=== PATIENT | female | born 1960 | race Two or more races ===

== ENCOUNTER 2024-07-04 04:31 | Inpatient (IN) | payer MEDICARE, MEDICAID ==
[~2024-07-04] VITALS: Ht 172.7 cm; Wt 104.2 kg
[2024-07-04 05:13] LABS: BASOPHILS % (AUTO) 0.5 % (0-1); EOSINOPHILS # (AUTO) 0.1 X10'3 (0-0.9); LYMPHOCYTES # (AUTO) 0.3 X10'3 (1.1-4.8); LYMPHOCYTES % (AUTO) 3.4 % (21-51); MEAN CORPUSCULAR HEMOGLOBIN 26.9 PG (27.0-31.0); MEAN CORPUSCULAR HGB CONC 32.7 g/dL (33.0-36.5); MEAN CORPUSCULAR VOLUME 82.2 FL (78-98); MEAN PLATELET VOLUME 8.8 FL (7.4-10.4); MONOCYTES # (AUTO) 0.4 X10'3 (0-0.9); MONOCYTES % (AUTO) 4.3 % (2-12); NEUTROPHILS # (AUTO) 7.9 X10'3 (1.8-7.7); NEUTROPHILS % (AUTO) 90.8 % (42-75); PLATELET COUNT 86 X10'3 (140-440); RED BLOOD COUNT 2.49 X10'6 (4.20-5.60); RED CELL DISTRIBUTION WIDTH 15.7 % (11.5-14.5); WHITE BLOOD COUNT 8.6 X10'3 (4.5-11.0)
[2024-07-04 05:16] LABS: HEMATOCRIT 20.5 % (35.0-45.0); HEMOGLOBIN 6.7 g/dl (12.0-16.0)
[2024-07-04] MEDS ORDERED: SACU1TAB7 PO (05:22)
[2024-07-04] MEDS ORDERED: APRE1TAB3 PO (05:22)
[2024-07-04] MEDS ORDERED: ASPI-1397 PO (05:22)
[2024-07-04] MEDS ORDERED: METO-384 PO (05:22)
[2024-07-04] MEDS ORDERED: LACT-373 PO (05:22)
[2024-07-04] MEDS ORDERED: EMPA10TA PO (05:22)
[2024-07-04] MEDS ORDERED: RIFA550T PO (05:22)
[2024-07-04] MEDS ORDERED: BETA15CR4 TOP (05:22)
[2024-07-04] MEDS ORDERED: INSU200I4 SQ (05:22)
[2024-07-04] MEDS ORDERED: CLOP75TA34 PO (05:22)
[2024-07-04] MEDS ORDERED: SPIR50TA5 (05:25)
[2024-07-04 05:27] LABS: APTT 26 SECONDS (22-32); INR 1.3 INR
[2024-07-04 05:32] LABS: ALBUMIN 1.4 G/DL (3.4-5.0); ANION GAP 11 (8-16); BLOOD UREA NITROGEN 32 MG/DL (7-18); CALCIUM 7.4 MG/DL (8.5-10.1); CHLORIDE 101 MMOL/L (99-107); CREATININE 2.13 MG/DL (0.40-0.90); POTASSIUM 3.6 MMOL/L (3.5-5.1); SODIUM 131 MMOL/L (135-145); TOTAL CARBON DIOXIDE 19.4 MMOL/L (24-32); eCRCL 28 ML/MIN; eGFR 23 ML/MIN
[2024-07-04] MEDS: normal saline 1000ml 1,000 ML IV ONE ×2 (05:39→10:03)
[2024-07-04] MEDS ORDERED: calcium gluconate inj. 2 GM in normal saline 100ml IV soln 100 ML IV ONE (05:40)
[2024-07-04 05:43] LABS: GLUCOSE 436 MG/DL (70-104)
[2024-07-04] MEDS: CALCIUM GLUC 1gm/50ml NACL,iso 50 ML IV ONE ×2 (05:57→06:42)
[2024-07-04] MEDS: insulin regular, human 10 units/0.1 ml syringe IV ONE (06:06)
[2024-07-04] MEDS: potassium Cl 40MEQ/1/2NS 520ml 520 ML IV SCH (06:38)
[2024-07-04 06:54] VITALS: BP 101/50; PULSE 90; RESP 14; TEMP 98.1
[2024-07-04 07:18] VITALS: BP 100/46; PULSE 92; RESP 16; TEMP 98.3
[2024-07-04] MEDS: acetaminophen 1,000mg/100ml IV 100 ML IV SCH (07:23)
[2024-07-04] MEDS: LORazepam 2 mg/ml vial IV ONE (07:44)
[2024-07-04 08:18] VITALS: BP 102/50; PULSE 90; RESP 16; TEMP 97.7
[2024-07-04] MEDS ORDERED: ondansetron/PF 4mg/2ml inj IV PRN ×2 (08:45→08:50)
[2024-07-04] MEDS ORDERED: magnesium sulf-water 4G/100mL 100 ML IV PRN ×2 (08:45→08:50)
[2024-07-04] MEDS ORDERED: potassium Cl 40MEQ/1/2NS 520ml 520 ML IV PRN ×2 (08:45→08:50)
[2024-07-04] MEDS ORDERED: magnesium sulf-water 2g/50mL 50 ML IV PRN ×2 (08:45→08:50)
[2024-07-04] MEDS ORDERED: mag hydrox/Alum hydrox/simeth 30ml oral suspension PO PRN ×2 (08:45→08:50)
[2024-07-04 08:50] VITALS: BP 108/61; PULSE 90; RESP 14; TEMP 98
[2024-07-04] MEDS ORDERED: magnesium hydroxide 30ml (MOM) UD suspension PO PRN (08:50)
[2024-07-04] MEDS ORDERED: magnesium Cl slow-release 64mg tablet PO PRN (08:50)
[2024-07-04] MEDS ORDERED: acetaminophen 325mg tablet PO PRN ×2 (08:50)
[2024-07-04] MEDS ORDERED: potassium Cl 20 mEq SR tablet PO PRN ×2 (08:50)
[2024-07-04] MEDS ORDERED: DEXTROSE 15 GM of carb/4 tabs (each vial/BOTTLE has 4 tablets) PO PRN ×2 (08:55)
[2024-07-04] MEDS ORDERED: dextrose 50%-water 50ml dispensing syringe IV PRN ×2 (08:55)
[2024-07-04] MEDS ORDERED: glucagon, human recombinant 1mg kit SUBCUT PRN (08:55)
[2024-07-04] MEDS: heparin, porcine 5000 units/ml vial SQ SCH (09:10)
[2024-07-04] MEDS: PERFLUTREN PROTEIN-A MICROSPHR (Optison) 0.22 MG/ML 3ML VIAL IV ONE (09:19)
[2024-07-04 09:20] LABS: MAGNESIUM 2.2 MG/DL (1.5-2.4)
[2024-07-04 09:27] LABS: BILIRUBIN,URINE NEGATIVE (Neg); CLARITY,URINE CLOUDY (Clear); COLOR,URINE YELLOW (Yellow); GLUCOSE, URINE >=1000 mg/dl (Neg); KETONES,URINE NEGATIVE (Neg); LEUKOCYTE ESTERASE ,URINE NEGATIVE (Neg); NITRITES, URINE NEGATIVE (Neg); OCCULT BLOOD,URINE NEGATIVE (Neg); PH,URINE 5.5 (4.8-8.0); PROTEIN,URINE NEGATIVE (Neg); UROBILINOGEN,URINE 0.2 E.U/dL (0.2-1.0)
[2024-07-04 09:30] LABS: UA COLLECTION TYPE FOLEY CATH
[2024-07-04 09:32] LABS: SQUAMOUS EPITHELIAL CELL,UR FEW /LPF (FEW)
[2024-07-04 09:33] LABS: BACTERIA,URINE 1+ /HPF (Neg); RBC,URINE 0-2 /HPF (0-2); WBC,URINE TNTC /HPF (0-4)
[2024-07-04 10:02] LABS: APTT 27 SECONDS (22-32); INR 1.2 INR; PROTHROMBIN TIME 12.7 SECONDS (9.0-12.0)
[2024-07-04] MEDS: normal saline 1000ml 1,000 ML IV SCH (10:04)
[2024-07-04] MEDS: morphine 2 MG/ML inj. syringe IV PRN (10:09)
[2024-07-04 10:12] LABS: HEMOGLOBIN A1C 8.7 % (4.5-6.2)
[2024-07-04] MEDS: CefTRIAXone/D5W-Rocephin 1gm 50 ML IV SCH (10:17)
[2024-07-04 10:39] LABS: ABG BASE EXCESS -7.1 mmol/L (-2.0-3.0); ABG HCO3 16.1 mmol/L (21.0-28.0); ABG OXYGEN SATURATION 91.6 % (94.0-98.0); ABG PCO2 (T) 24.3 mmHg (32.0-45.0); ABG PH (T) 7.437 (7.350-7.450); ABG PO2 (T) 53.8 mmHg (83.0-108.0); ALLEN'S TEST POSITIVE; FCOHb 1.7 % (0.5-1.5); FHHb 8.2 % (0.0-5.0); FLOW 0 L/min; FMetHb 0.3 % (0.0-1.5); FO2Hb 89.8 % (94.0-98.0); MODE ROOM AIR; PATIENT TEMPERATURE 36.7; TOTAL HEMOGLOBIN 8.6 G/dl (12.0-16.0)
[2024-07-04 11:17] LABS: HEMATOCRIT 24.6 % (35.0-45.0); HEMOGLOBIN 8.2 g/dl (12.0-16.0); MEAN CORPUSCULAR HEMOGLOBIN 27.5 PG (27.0-31.0); MEAN CORPUSCULAR HGB CONC 33.3 g/dL (33.0-36.5); MEAN CORPUSCULAR VOLUME 82.4 FL (78-98); MEAN PLATELET VOLUME 8.7 FL (7.4-10.4); PLATELET COUNT 90 X10'3 (140-440); RED BLOOD COUNT 2.99 X10'6 (4.20-5.60); RED CELL DISTRIBUTION WIDTH 15.8 % (11.5-14.5); WHITE BLOOD COUNT 8.8 X10'3 (4.5-11.0)
[2024-07-04 11:38] LABS: D-DIMER 2.06 MG/L FEU (0-0.50)
[2024-07-04] MEDS ORDERED: normal saline 1000ML IV soln IVB ONE (11:40)
[2024-07-04] MEDS: INSULIN LISPRO 100 UNIT/ML INSULN.PEN MULTI-DOSE SQ SCH (12:50)
[2024-07-04 19:25] VITALS: BP 105/43; PULSE 91; RESP 11; TEMP 97.2; O2SAT 94
[2024-07-04 19:26] LABS: HEMATOCRIT 25.6 % (35.0-45.0); HEMOGLOBIN 8.5 g/dl (12.0-16.0); MEAN CORPUSCULAR HEMOGLOBIN 27.4 PG (27.0-31.0); MEAN CORPUSCULAR HGB CONC 33.4 g/dL (33.0-36.5); MEAN CORPUSCULAR VOLUME 82.1 FL (78-98); MEAN PLATELET VOLUME 9.1 FL (7.4-10.4); PLATELET COUNT 87 X10'3 (140-440); RED BLOOD COUNT 3.11 X10'6 (4.20-5.60); RED CELL DISTRIBUTION WIDTH 15.7 % (11.5-14.5); WHITE BLOOD COUNT 8.1 X10'3 (4.5-11.0)
[2024-07-04] MEDS: K and/or MAG REPLACEMENT MC SCH (20:00)
[2024-07-04 20:01] LABS: CHOL/HDL RATIO 3.8 (0.00-4.99); CHOLESTEROL 137 MG/DL (0-200); CREATININE 2.04 MG/DL (0.40-0.90); HDL CHOLESTEROL 36 MG/DL (35-60); LDL CHOLESTEROL 71 MG/DL (50-100); PRO BRAIN NATRIURETIC PEPTIDE 1006 PG/ML (0-125); SODIUM 131 MMOL/L (135-145); TRIGLYCERIDES 89 MG/DL (20-135); eCRCL 29 ML/MIN; eGFR 25 ML/MIN
[2024-07-04 20:48] LABS: OSMOLALITY 536.5 MOSM/K (280-300)
[2024-07-04] MEDS: rifaximin 550mg tablet PO SCH (21:36)
[2024-07-04] MEDS: docusate sod 100mg capsule PO SCH (21:37)
[2024-07-04] MEDS: aspirin 81mg, enteric-coated 1 TAB TABLET.DR PO SCH (21:37)
[2024-07-04] MEDS: clopidogrel 75mg tablet PO SCH (21:37)
[2024-07-04] MEDS: EMPAGLIFLOZIN 10 MG TABLET PO SCH (21:39)
[2024-07-04] MEDS: sacubitril/valsartan 49mg-51mg tablet PO SCH (21:40)
[2024-07-04 22:00] VITALS: BP 99/36; PULSE 93; RESP 12; TEMP 97.7; O2SAT 98
[2024-07-04] MEDS: insulin glargine (Lantus) pen - multi-dose SQ SCH (22:56)
[2024-07-05] VITALS (8 sets, daily range): BP systolic 102–140; BP diastolic 48–59; PULSE 90–100; RESP 12–16; TEMP 96.7–98.6; O2SAT 94–100
[2024-07-05 06:48] LABS: BASOPHILS # (AUTO) 0.1 X10'3 (0-0.2); BASOPHILS % (AUTO) 0.9 % (0-1); EOSINOPHILS # (AUTO) 0.8 X10'3 (0-0.9); EOSINOPHILS % (AUTO) 10.5 % (0-6); HEMOGLOBIN 8.5 g/dl (12.0-16.0); LYMPHOCYTES # (AUTO) 0.6 X10'3 (1.1-4.8); LYMPHOCYTES % (AUTO) 8.4 % (21-51); MEAN CORPUSCULAR HEMOGLOBIN 26.8 PG (27.0-31.0); MEAN CORPUSCULAR HGB CONC 32.6 g/dL (33.0-36.5); MEAN CORPUSCULAR VOLUME 82.3 FL (78-98); MEAN PLATELET VOLUME 8.7 FL (7.4-10.4); MONOCYTES # (AUTO) 0.7 X10'3 (0-0.9); MONOCYTES % (AUTO) 9.8 % (2-12); NEUTROPHILS % (AUTO) 70.4 % (42-75); PLATELET COUNT 91 X10'3 (140-440); RED BLOOD COUNT 3.16 X10'6 (4.20-5.60); RED CELL DISTRIBUTION WIDTH 16.1 % (11.5-14.5); WHITE BLOOD COUNT 7.1 X10'3 (4.5-11.0)
[2024-07-05 07:20] LABS: ALANINE AMINOTRANSFERASE 15 U/L (12-78); ALBUMIN 1.5 G/DL (3.4-5.0); ALBUMIN/GLOBULIN RATIO 0.4 (1.1-1.5); ALKALINE PHOSPHATASE 89 IU/L (46-116); ANION GAP 9 (8-16); ASPARTATE AMINO TRANSFERASE 18 U/L (10-37); BILIRUBIN,TOTAL 0.9 MG/DL (0.1-1.0); BLOOD UREA NITROGEN 32 MG/DL (7-18); BUN/CREATININE RATIO 15.7 (10.0-20.0); CALCIUM 7.4 MG/DL (8.5-10.1); CHLORIDE 107 MMOL/L (99-107); CREATININE 2.04 MG/DL (0.40-0.90); GLUCOSE 228 MG/DL (70-104); MAGNESIUM 2.3 MG/DL (1.5-2.4); POTASSIUM 4.6 MMOL/L (3.5-5.1); SODIUM 136 MMOL/L (135-145); TOTAL CARBON DIOXIDE 20.5 MMOL/L (24-32); TOTAL PROTEIN 5.6 G/DL (6.4-8.2); eCRCL 29 ML/MIN; eGFR 25 ML/MIN
[2024-07-05] MEDS: pantoprazole 40 MG vial IV SCH (13:14)
[2024-07-05] MEDS: lactulose 20gm/30ml cup PO SCH (13:14)
[2024-07-05] MEDS: octreotide inj. 500 MCG in normal saline 100ml IV soln 97.5 ML IV SCH (13:24)
[2024-07-05] MEDS: octreotide 100mcg/1 ml ampule IV ONE (13:53)
[2024-07-05] MEDS: morphine 2 MG/ML inj. syringe IV PRN (19:18)
[2024-07-05 20:41] LABS: HEMATOCRIT 26.5 % (35.0-45.0); HEMOGLOBIN 8.6 g/dl (12.0-16.0); MEAN CORPUSCULAR HGB CONC 32.4 g/dL (33.0-36.5); MEAN CORPUSCULAR VOLUME 83.3 FL (78-98); MEAN PLATELET VOLUME 8.5 FL (7.4-10.4); PLATELET COUNT 93 X10'3 (140-440); RED BLOOD COUNT 3.18 X10'6 (4.20-5.60); RED CELL DISTRIBUTION WIDTH 16.5 % (11.5-14.5); WHITE BLOOD COUNT 4.9 X10'3 (4.5-11.0)
[2024-07-05] MEDS: insulin glargine (Lantus) pen - multi-dose SQ SCH (21:23)
[2024-07-06] VITALS (7 sets, daily range): BP systolic 102–144; BP diastolic 45–67; PULSE 72–96; RESP 16–20; TEMP 97.4–99; O2SAT 95–100
[2024-07-06 06:12] LABS: ALANINE AMINOTRANSFERASE 16 U/L (12-78); ALBUMIN 1.5 G/DL (3.4-5.0); ALBUMIN/GLOBULIN RATIO 0.3 (1.1-1.5); ALKALINE PHOSPHATASE 94 IU/L (46-116); ANION GAP 8 (8-16); ASPARTATE AMINO TRANSFERASE 21 U/L (10-37); BILIRUBIN,TOTAL 0.9 MG/DL (0.1-1.0); BLOOD UREA NITROGEN 27 MG/DL (7-18); BUN/CREATININE RATIO 12.9 (10.0-20.0); CALCIUM 7.4 MG/DL (8.5-10.1); CHLORIDE 110 MMOL/L (99-107); CREATININE 2.09 MG/DL (0.40-0.90); GLUCOSE 269 MG/DL (70-104); SODIUM 138 MMOL/L (135-145); TOTAL CARBON DIOXIDE 19.6 MMOL/L (24-32); TOTAL PROTEIN 5.8 G/DL (6.4-8.2); eCRCL 28 ML/MIN; eGFR 24 ML/MIN
[2024-07-06 06:18] LABS: MAGNESIUM 2.5 MG/DL (1.5-2.4)
[2024-07-06 06:21] LABS: BASOPHILS # (AUTO) 0.1 X10'3 (0-0.2); BASOPHILS % (AUTO) 1.2 % (0-1); EOSINOPHILS # (AUTO) 0.7 X10'3 (0-0.9); EOSINOPHILS % (AUTO) 13.2 % (0-6); HEMATOCRIT 25.8 % (35.0-45.0); HEMOGLOBIN 8.4 g/dl (12.0-16.0); LYMPHOCYTES # (AUTO) 0.6 X10'3 (1.1-4.8); LYMPHOCYTES % (AUTO) 12.7 % (21-51); MEAN CORPUSCULAR HEMOGLOBIN 27.2 PG (27.0-31.0); MEAN CORPUSCULAR HGB CONC 32.5 g/dL (33.0-36.5); MEAN CORPUSCULAR VOLUME 83.7 FL (78-98); MONOCYTES # (AUTO) 0.5 X10'3 (0-0.9); MONOCYTES % (AUTO) 9.2 % (2-12); NEUTROPHILS # (AUTO) 3.2 X10'3 (1.8-7.7); NEUTROPHILS % (AUTO) 63.7 % (42-75); PLATELET COUNT 105 X10'3 (140-440); RED BLOOD COUNT 3.08 X10'6 (4.20-5.60); RED CELL DISTRIBUTION WIDTH 16.2 % (11.5-14.5)
[2024-07-06] MEDS: metoprolol succinate 25mg (24-HOUR) SR. Tablet PO SCH (08:00)
[2024-07-06] MEDS: spironolactone 50 MG tablet PO SCH (11:38)
[2024-07-06] MEDS: pantoprazole 40 MG vial IV SCH (13:05)
[2024-07-06] MEDS: lactulose 20gm/30ml cup PO SCH (13:55)
[2024-07-06 19:42] LABS: OCCULT BLOOD STOOL NEGATIVE (Neg)
[2024-07-07 02:00] VITALS: BP 116/35; PULSE 78; RESP 16; TEMP 97.2; O2SAT 98
[2024-07-07 06:00] VITALS: BP 162/57; PULSE 70; RESP 16; TEMP 97.6; O2SAT 95
[2024-07-07 06:43] LABS: BASOPHILS # (AUTO) 0.1 X10'3 (0-0.2); BASOPHILS % (AUTO) 1.8 % (0-1); EOSINOPHILS # (AUTO) 0.8 X10'3 (0-0.9); EOSINOPHILS % (AUTO) 17.9 % (0-6); HEMOGLOBIN 8.9 g/dl (12.0-16.0); LYMPHOCYTES # (AUTO) 0.6 X10'3 (1.1-4.8); LYMPHOCYTES % (AUTO) 13.1 % (21-51); MEAN CORPUSCULAR HEMOGLOBIN 27.1 PG (27.0-31.0); MEAN CORPUSCULAR HGB CONC 31.6 g/dL (33.0-36.5); MEAN CORPUSCULAR VOLUME 85.7 FL (78-98); MEAN PLATELET VOLUME 8.8 FL (7.4-10.4); MONOCYTES # (AUTO) 0.5 X10'3 (0-0.9); MONOCYTES % (AUTO) 11.4 % (2-12); NEUTROPHILS # (AUTO) 2.5 X10'3 (1.8-7.7); NEUTROPHILS % (AUTO) 55.8 % (42-75); PLATELET COUNT 98 X10'3 (140-440); RED BLOOD COUNT 3.27 X10'6 (4.20-5.60); RED CELL DISTRIBUTION WIDTH 16.7 % (11.5-14.5); WHITE BLOOD COUNT 4.5 X10'3 (4.5-11.0)
[2024-07-07 07:30] LABS: ALANINE AMINOTRANSFERASE 17 U/L (12-78); ALBUMIN 1.6 G/DL (3.4-5.0); ALBUMIN/GLOBULIN RATIO 0.4 (1.1-1.5); ALKALINE PHOSPHATASE 95 IU/L (46-116); ANION GAP 9 (8-16); ASPARTATE AMINO TRANSFERASE 23 U/L (10-37); BILIRUBIN,TOTAL 0.9 MG/DL (0.1-1.0); BLOOD UREA NITROGEN 26 MG/DL (7-18); BUN/CREATININE RATIO 12.9 (10.0-20.0); CALCIUM 7.2 MG/DL (8.5-10.1); CHLORIDE 111 MMOL/L (99-107); CREATININE 2.02 MG/DL (0.40-0.90); GLUCOSE 311 MG/DL (70-104); MAGNESIUM 2.4 MG/DL (1.5-2.4); POTASSIUM 5.1 MMOL/L (3.5-5.1); SODIUM 139 MMOL/L (135-145); TOTAL CARBON DIOXIDE 19.3 MMOL/L (24-32); eCRCL 29 ML/MIN; eGFR 25 ML/MIN
[2024-07-07 08:00] VITALS: RESP 16; O2SAT 95
[2024-07-07 11:00] VITALS: BP 138/50; PULSE 73; RESP 18; TEMP 97.4; O2SAT 98
[2024-07-07] MEDS: INSULIN LISPRO 100 UNIT/ML INSULN.PEN MULTI-DOSE SQ SCH (14:05)
[2024-07-07] MEDS ORDERED: CEFD300C3 PO (14:53)
[2024-07-07] MEDS ORDERED: PANT-47 PO (14:53)
[2024-07-07] MEDS ORDERED: LACT1CAP26 PO (14:53)
== END 2024-07-07 16:04 | disposition home health service (06) | DRG 871 ==
LOC: ER 04:32 → ED HOLD 08:29 → PCU 3S 19:15
PROVIDERS: ADMIT Family Medicine; ATTEND Family Medicine
PROC: 30233N1 Transfusion of Nonautologous Red Blood Cells into Peripheral Vein, Percutaneous Approach (ICD-10-PCS; 2024-07-04)
PROC: CB121ZZ Planar Nuclear Medicine Imaging of Lungs and Bronchi using Technetium 99m (Tc-99m) (ICD-10-PCS; principal; 2024-07-05)
DX: A41.9 Sepsis, unspecified organism (principal); E11.00 Type 2 diabetes mellitus with hyperosmolarity without nonketotic hyperglycemic-hyperosmolar coma (NKHHC); I21.A1 Myocardial infarction type 2; R65.21 Severe sepsis with septic shock; N17.0 Acute kidney failure with tubular necrosis; I85.11 Secondary esophageal varices with bleeding; I13.0 Hypertensive heart and chronic kidney disease with heart failure and stage 1 through stage 4 chronic kidney disease, or unspecified chronic kidney disease; N39.0 Urinary tract infection, site not specified; L03.818 Cellulitis of other sites; Z20.822 Contact with and (suspected) exposure to COVID-19; D63.8 Anemia in other chronic diseases classified elsewhere; I25.10 Atherosclerotic heart disease of native coronary artery without angina pectoris; E11.22 Type 2 diabetes mellitus with diabetic chronic kidney disease; I50.9 Heart failure, unspecified; E78.5 Hyperlipidemia, unspecified; N18.30 Chronic kidney disease, stage 3 unspecified; K74.60 Unspecified cirrhosis of liver; G47.00 Insomnia, unspecified; Z79.82 Long term (current) use of aspirin; Z79.01 Long term (current) use of anticoagulants; Z79.899 Other long term (current) drug therapy; Z79.4 Long term (current) use of insulin; Z95.5 Presence of coronary angioplasty implant and graft
CPT/HCPCS: 36415; 36430; 36600; 71045; 78582; 80048; 80053; 80061; 81001; 82140; 82272; 82565; 82607; 82803; 82948; 83036; 83540; 83550; 83605; 83735; 83880; 83930; 84145; 84295; 84484; 85018; 85025; 85027; 85379; 85610; 85730; 86885; 86900; 86901; 86920; 87040; 87077; 87081; 87088; 87186; 87502; 87503; 87811; 92508; 92616; 93005; 93306; 93970; 97116; 97161; 97530; A9539; A9540; C1758; G0378; J0131; J0610; J0696; J1644; J1815; J2060; J2270; J2354; J2470; J3480; J7030; J7040; P9016